=== PATIENT | male | born 1985 | race Caucasian/White ===

== ENCOUNTER 2017-01-22 16:04 | Emergency (ER) | payer OTHER ==
[2017-01-22] MEDS ORDERED: Cephalexin CAP* 500 MG PO ONE (16:11)
[2017-01-22 16:28] VITALS: BP 191/96
[2017-01-22] MEDS ORDERED: HYDROcodone/ACETAMIN 5-325 MG* 1 TAB PO ONE (16:36)
--- NOTE | 2017-01-22 16:49 | UC ---
Back Pain HPI - HPI Summary HPI Summary: 31 yo male with LBP x days L>R spasmotic decreased ROM radiates to L buttock no bowel or bladder dysfunction occasionally radiated to chest - History of Current Complaint Chief Complaint: UCBackPain Stated Complaint: CHEST AND BACK PAIN Time Seen by Provider: 01/22/17 16:28 Hx Obtained From: Patient Onset/Duration: Gradual Onset, Lasting Days Timing: Constant Severity Initially: Severe Severity Currently: Severe Pain Intensity: 8 Pain Scale Used: 0-10 Numeric Back Pain: Is Diffuse, Radiates To - left buttock Character: Throbbing, Spasmodic, Stiffness Aggravating: Movement, Lifting, Bending Alleviating: Rest Associated Signs And Symptoms: Positive: Negative Related History: Previous Back Injury - Allergies/Home Medications Allergies/Adverse Reactions: Allergies Allergy/AdvReac Type Severity Reaction Status Date / Time No Known Allergies Allergy Verified 01/22/17 16:20 Home Medications: Home Medications Ibuprofen [Advil] 400 mg PO 01/22/17 [History] PMH/Surg Hx/FS Hx/Imm Hx Previously Healthy: Yes Endocrine History Of: Denies: Diabetes, Thyroid Disease, Hyperthyroidism, Hypothyroidism Cardiovascular History Of: Denies: Cardiac Disorders, Hypertension, Pacemaker/ICD Respiratory History Of: Reports: Asthma GI/ History Of: Reports: Kidney Stones Neurological History Of: Denies: TIA, Seizures Psychological History Of: Denies: Anxiety, Depression Other History Of: Negative For: Anticoagulant Therapy - Surgical History Surgical History: Yes Surgery Procedure, Year, and Place: LT.RENAL STENT 2009 @ [facility] [place]/; APPENDECTOMY - Family History Known Family History: Positive: Hypertension, Other - kedney stones - Social History Alcohol Use: None Substance Use Type: None Smoking Status (MU): Former Smoker Household Exposure Type: Cigarettes Review of Systems Constitutional: Negative Skin: Negative Eyes: Negative ENT: Negative Respiratory: Negative Cardiovascular: Negative Gastrointestinal: Negative Genitourinary: Negative Motor: Negative Neurovascular: Negative Musculoskeletal: Arthralgia, Myalgia Neurological: Negative Psychological: Negative All Other Systems Reviewed And Are Negative: Yes Physical Exam Triage Information Reviewed: Yes Appearance: Well-Appearing, No Pain Distress, Well-Nourished Vital Signs: Initial Vital Signs Temp 99 F 01/22/17 16:22 Pulse 90 01/22/17 16:22 Resp 18 01/22/17 16:22 BP 191/96 01/22/17 16:22 Pulse Ox 96 01/22/17 16:22 Vital Signs Reviewed: Yes Eyes: Positive: Conjunctiva Clear ENT: Positive: Hearing grossly normal. Negative: Nasal congestion, Nasal drainage, Trismus, Muffled/hoarse voice Neck: Positive: Supple, Nontender, No Lymphadenopathy Respiratory: Positive: Lungs clear, Normal breath sounds, No respiratory distress, No accessory muscle use Cardiovascular: Positive: RRR, No Murmur Abdomen Description: Negative: CVA Tenderness (R), CVA Tenderness (L) Musculoskeletal: Positive: ROM Intact, No Edema Neurological Exam: Normal Psychological Exam: Normal Skin Exam: Normal Back Pain Course/Dx - Differential Dx/Diagnosis Provider Diagnoses: acute lumbar myofascial strain/spasm Discharge - Discharge Plan Condition: Stable Disposition: HOME Prescriptions: Cyclobenzaprine TAB* [Flexeril TAB*] 5 mg PO TID PRN #21 tab PRN Reason: Spasms HYDROcodone/ACETAMIN 5-325 MG* [[place]rie 5-325 TAB*] 1 tab PO Q4H PRN #15 tab MDD 4 PRN Reason: Pain - Severe Naproxen [Naproxen 500 MG TABS] 500 mg PO BID PRN #30 tab PRN Reason: Pain Prednisone [Deltasone] 40 mg PO DAILY #2 tab Patient Education Materials: Low Back Strain (ED) Forms: *Work Release Referrals: Sarina Javier MD [Primary Care Provider] - 5 Days (you BP needs rechecking as well) Images Front/Back of Body, Lg (Placer): 1 - tender L>R 2 - radiates here, decreased ROM, (-) SLR, slow wide based gait
== END 2017-01-22 16:50 | disposition home or self-care (01) ==
LOC: UCEAST 16:04
DX: S39.012A Strain of muscle, fascia and tendon of lower back, initial encounter (principal); X58.XXXA Exposure to other specified factors, initial encounter; Y93.9 Activity, unspecified; Y92.9 Unspecified place or not applicable; M62.830 Muscle spasm of back; R07.89 Other chest pain; J45.909 Unspecified asthma, uncomplicated; Z87.442 Personal history of urinary calculi
CPT/HCPCS: 93005; 99202; G0463

== ENCOUNTER 2017-05-23 12:13 | Emergency (ER) | payer OTHER ==
[2017-05-23 12:36] VITALS: BP 156/103
--- NOTE | 2017-05-27 19:16 | UC ---
Respiratory Complaint HPI - HPI Summary HPI Summary: Patient presents with complaints of 10 day onset cough, chest congestion and sputum. He reports pain with coughing, that feels like razor blades. He denies fever, chills, nausea or vomiting. He denies chest pain except with coughing. - History of Current Complaint Chief Complaint: UCRespiratory Stated Complaint: URI Time Seen by Provider: 05/23/17 13:12 Hx Obtained From: Patient Onset/Duration: Gradual Onset, Lasting Days Timing: Intermittent Episodes Pain Intensity: 5 Pain Scale Used: 0-10 Numeric Character: Cough: Productive Aggravating Factors: Recumbent Position Alleviating Factors: Upright Position, Spontaneous Resolution Associated Signs And Symptoms: Positive: Pleuritic Chest Pain, URI - Risk Factors Pulmonary Embolism Risk Factors: Negative Cardiac Risk Factors: Negative Pseudomonas Risk Factors: Negative Tuberculosis Risk Factors: Negative - Allergies/Home Medications Allergies/Adverse Reactions: Allergies Allergy/AdvReac Type Severity Reaction Status Date / Time No Known Allergies Allergy Verified 01/22/17 16:20 Home Medications: Home Medications Albuterol HFA INHALER* [Ventolin HFA Inhaler*] 1 puff INH Q4H PRN 05/23/17 [ History Confirmed 05/23/17] PMH/Surg Hx/FS Hx/Imm Hx Previously Healthy: Yes Other History Of: Negative For: Anticoagulant Therapy - Surgical History Surgical History: Yes Surgery Procedure, Year, and Place: LT.RENAL STENT 2009 @ [facility] [place]/; APPENDECTOMY - Family History Known Family History: Positive: Hypertension, Other - kedney stones - Social History Occupation: Employed Part-time Lives: Alone Alcohol Use: None Substance Use Type: None Smoking Status (MU): Heavy Every Day Tobacco Smoker Household Exposure Type: Cigarettes Review of Systems Constitutional: Fatigue Skin: Negative Eyes: Negative ENT: Negative Respiratory: Cough Cardiovascular: Negative Gastrointestinal: Negative Genitourinary: Negative Motor: Negative All Other Systems Reviewed And Are Negative: Yes Physical Exam Triage Information Reviewed: Yes Appearance: Well-Nourished Vital Signs: Initial Vital Signs Temp 98.8 F 05/23/17 12:34 Pulse 87 05/23/17 12:34 Resp 18 05/23/17 12:34 BP 156/103 05/23/17 12:34 Pulse Ox 99 05/23/17 12:34 Vital Signs Reviewed: Yes Eye Exam: Normal ENT Exam: Normal Neck exam: Normal Respiratory: Positive: Rhonchi Cardiovascular Exam: Normal Abdominal Exam: Normal Skin Exam: Normal UC Diagnostic Evaluation - Laboratory O2 Sat by Pulse Oximetry: 99 Respiratory Course/Dx - Course Course Of Treatment: Patient presents with bronnchitis and rx antibiotcs, prednisone, streroid inhalers and albuterol. He was instructed to follow up with PCP if his symtpoms persist, discharge home in stable conditions. - Differential Dx/Diagnosis Differential Diagnosis/HQI/PQRI: Bronchitis Provider Diagnoses: bronchitis Discharge - Discharge Plan Condition: Stable Disposition: HOME Prescriptions: Albuterol 2.5MG/3ML (0.083%)* [Ventolin 2.5 MG/3 ML NEB.CARMEN*] 2.5 mg INH Q4H #1 box Benzonatate [TESSALON 200 MG CAP] 200 mg PO TID #30 cap DOXYcycline CAP(*) [DOXYcycline 100MG CAP(*)] 100 mg PO BID #20 cap Fluticasone-Salmeterol 250-50* [Advair Diskus 250-50*] 1 puff INH BID #1 diskus predniSONE TAB* [Deltasone TAB*] 20 mg PO BID #10 tab Patient Education Materials: Asthma (ED), Acute Bronchitis (ED) Referrals: Sarina Javier MD [Primary Care Provider] -
== END 2017-05-23 13:24 | disposition home or self-care (01) ==
LOC: UCEAST 12:13
DX: J40 Bronchitis, not specified as acute or chronic (principal); F17.210 Nicotine dependence, cigarettes, uncomplicated
CPT/HCPCS: 99212; G0463

== ENCOUNTER 2017-07-06 17:43 | Emergency (ER) | payer OTHER ==
[2017-07-06 18:03] VITALS: BP 172/112
== END 2017-07-06 19:24 | disposition left against medical advice (07) ==
LOC: ED 17:43
DX: M54.5 Low back pain (principal); Z53.21 Procedure and treatment not carried out due to patient leaving prior to being seen by health care provider
CPT/HCPCS: 99282

== ENCOUNTER 2017-07-08 17:06 | Emergency (ER) | payer OTHER ==
[2017-07-08 17:23] VITALS: BP 167/103
[2017-07-08] MEDS ORDERED: Ketorolac INJ* 30 MG/ML 1 ML VIAL IM ONE (17:48)
[2017-07-08] MEDS ORDERED: methylPREDNISolone SOD 40 MG* 1 ML VIAL IM ONE (17:50)
--- NOTE | 2017-07-08 18:02 | UC ---
Back Pain HPI - HPI Summary HPI Summary: This is a 31 yo male with h/o prior back pain due to herniated disc who returns with new acute pain that started 2d ago while trying to lift his son. He has had some pain radiating down his R leg to the level of his R mid hamstring. He has some weakness in the leg, but believes it is due to pain. No numbness/ tingling. No bowel/bladder incontinence/retention. He has not tried any home therapies. - History of Current Complaint Chief Complaint: UCBackPain Stated Complaint: BACK PAIN - Allergies/Home Medications Allergies/Adverse Reactions: Allergies Allergy/AdvReac Type Severity Reaction Status Date / Time No Known Allergies Allergy Verified 07/08/17 17:23 PMH/Surg Hx/FS Hx/Imm Hx Previously Healthy: No - lumbar herniation Other History Of: Negative For: Anticoagulant Therapy - Surgical History Surgical History: Yes Surgery Procedure, Year, and Place: LT.RENAL STENT 2009 @ [facility] – [place]/; APPENDECTOMY - Family History Known Family History: Positive: Hypertension, Other - kedney stones - Social History Alcohol Use: None Substance Use Type: None Smoking Status (MU): Heavy Every Day Tobacco Smoker Type: Cigarettes Amount Used/How Often: 1 ppd Length of Time of Smoking/Using Tobacco: since age 12 Have You Smoked in the Last Year: Yes Household Exposure Type: Cigarettes Review of Systems Constitutional: Negative Skin: Negative Eyes: Negative ENT: Negative Respiratory: Negative Cardiovascular: Negative Gastrointestinal: Negative Genitourinary: Negative Motor: Decreased ROM Neurovascular: Negative Musculoskeletal: Arthralgia, Decreased ROM Neurological: Negative Psychological: Negative Is Patient Immunocompromised?: No All Other Systems Reviewed And Are Negative: Yes Physical Exam Triage Information Reviewed: Yes Appearance: Pain Distress - patient is unable to sit due to acute pain Vital Signs: Initial Vital Signs Temp 98.3 F 07/08/17 17:11 Pulse 113 07/08/17 17:11 Resp 16 07/08/17 17:11 BP 167/103 07/08/17 17:11 Pulse Ox 98 07/08/17 17:11 Vital Signs Reviewed: Yes ENT Exam: Normal Neck exam: Normal Respiratory Exam: Normal Respiratory: Positive: Lungs clear Cardiovascular: Positive: RRR, No Murmur Abdomen Description: Positive: Nontender Musculoskeletal: Positive: Strength Intact, ROM Limited @ - lumbar spine, Other : - TTP over lumbar spine , worst in the R lateral L5/S1 region Neurological: Positive: Muscle Tone Normal Psychological Exam: Normal Skin Exam: Normal Back Pain Course/Dx - Course Course Of Treatment: This is a 31 yo male with h/o prior herniated lumbar disc who presented with c/o acute back pain after being asymptomatic for the last couple of years. No neurologic deficits. Recommend NSAIDs, corticosteroids, muscle relaxants and heat. He can f/u with his PCP for an MRI if pain persists. - Differential Dx/Diagnosis Differential Diagnosis/HQI/PQRI: Herniated Disc, Strain, Sprain Provider Diagnoses: 1. Acute lumbar back pain - likely a herniated disc Discharge - Discharge Plan Condition: Stable Disposition: HOME Prescriptions: Cyclobenzaprine TAB* [Flexeril 10 MG TAB*] 10 mg PO TID PRN #30 tab PRN Reason: muscle spasm Methylprednisolone [Medrol Dosepak 4 MG*] 4 mg PO .SEE DAMIAN INSTRUCTION #1 damian oxyCODONE/Acetamin 5/325 MG* [Percocet 5/325 TAB*] 1 tab PO Q4H PRN #20 tab MDD 6 tabs PRN Reason: Pain Patient Education Materials: Acute Low Back Pain (ED) Referrals: Sarina Javier MD [Primary Care Provider] - 1 Week Additional Instructions: Instructions: 1. Use medications as directed 2. Please follow up with your primary care provider regarding your pain and appropriate imaging/referrals 3. Apply heat to your back frequently to help with the pain
== END 2017-07-08 18:06 | disposition home or self-care (01) ==
LOC: UCEAST 17:06
DX: M54.9 Dorsalgia, unspecified (principal); F17.210 Nicotine dependence, cigarettes, uncomplicated
CPT/HCPCS: 96372; 99212; G0463; J1885; J2920